=== PATIENT | female | born 2000 | race Caucasian/White ===

== ENCOUNTER 2019-11-12 06:34 | Emergency (ER) | payer OTHER ==
[~2019-11-12] VITALS: Ht 162.6 cm; Wt 65.9 kg
[2019-11-12 06:37] VITALS: BP 129/77
--- NOTE | 2019-11-12 06:50 | NUR ---
DR. LEON IN WITH PATIENT
[2019-11-12] MEDS ORDERED: IBUP-1984 PO (07:00)
== END 2019-11-12 07:10 | disposition home or self-care (01) ==
LOC: ER 06:35
DX: S66.811A Strain of other specified muscles, fascia and tendons at wrist and hand level, right hand, initial encounter (principal); X58.XXXA Exposure to other specified factors, initial encounter; Z79.899 Other long term (current) drug therapy; Y93.89 Activity, other specified; Y92.238 Other place in hospital as the place of occurrence of the external cause; Y99.0 Civilian activity done for income or pay
CPT/HCPCS: 99282

== ENCOUNTER 2020-01-31 11:03 | Emergency (ER) | payer BC, OTHER ==
[~2020-01-31] VITALS: Ht 160 cm; Wt 68.2 kg
[2020-01-31] MEDS ORDERED: ondansetron/PF 4mg/2ml inj IV ONE (11:50)
[2020-01-31] MEDS ORDERED: normal saline 1000ML IV soln IVB ONE (11:50)
[2020-01-31 13:11] LABS: BASOPHILS % (AUTO) 0.1 % (0-1); EOSINOPHILS % (AUTO) 0.3 % (0-6); HEMATOCRIT 37.6 % (35.0-45.0); HEMOGLOBIN 12.4 g/dl (12.0-16.0); LYMPHOCYTES # (AUTO) 1.2 X10'3 (1.1-4.8); LYMPHOCYTES % (AUTO) 6.2 % (21-51); MEAN CORPUSCULAR HEMOGLOBIN 27.4 PG (27.0-31.0); MEAN CORPUSCULAR HGB CONC 33.1 g/dL (33.0-36.5); MEAN CORPUSCULAR VOLUME 82.9 FL (78-98); MEAN PLATELET VOLUME 8.7 FL (7.4-10.4); MONOCYTES % (AUTO) 10.5 % (2-12); NEUTROPHILS # (AUTO) 15.5 X10'3 (1.8-7.7); NEUTROPHILS % (AUTO) 82.9 % (42-75); PLATELET COUNT 258 X10'3 (140-440); RED BLOOD COUNT 4.54 X10'6 (4.20-5.60); RED CELL DISTRIBUTION WIDTH 14.3 % (11.5-14.5); WHITE BLOOD COUNT 18.6 X10'3 (4.5-11.0)
[2020-01-31 13:24] LABS: ALANINE AMINOTRANSFERASE 20 U/L (12-78); ALBUMIN 3.9 G/DL (3.4-5.0); ALKALINE PHOSPHATASE 78 IU/L (20-180); ANION GAP 11 (8-16); ASPARTATE AMINO TRANSFERASE 14 U/L (10-37); BILIRUBIN,TOTAL 0.5 MG/DL (0.1-1.0); BLOOD UREA NITROGEN 11 MG/DL (7-18); BUN/CREATININE RATIO 10.7 (6.6-38.0); CALCIUM 9.1 MG/DL (8.5-10.1); CHLORIDE 101 MMOL/L (99-107); CREATININE 1.03 MG/DL (0.40-0.90); GLUCOSE 120 MG/DL (70-104); POTASSIUM 3.5 MMOL/L (3.5-5.1); SODIUM 137 MMOL/L (135-145); TOTAL PROTEIN 7.7 G/DL (6.4-8.2); eGFR 68 ML/MIN
[2020-01-31 13:39] LABS: CLARITY,URINE SLIGHTLY CLOUDY (Clear); COLOR,URINE YELLOW (Yellow); GLUCOSE, URINE NEGATIVE (Neg); KETONES,URINE NEGATIVE (Neg); LEUKOCYTE ESTERASE ,URINE NEGATIVE (Neg); NITRITES, URINE NEGATIVE (Neg); OCCULT BLOOD,URINE TRACE-INTACT (Neg); PROTEIN,URINE 30 mg/dl (Neg); UROBILINOGEN,URINE 0.2 E.U/dL (0.2-1.0)
[2020-01-31 13:51] LABS: UA COLLECTION TYPE CLN CATCH MIDSTREAM
[2020-01-31 13:53] LABS: URINE HCG NEGATIVE (NEG)
[2020-01-31 13:55] LABS: RBC,URINE 0-2 /HPF (0-2)
[2020-01-31 13:57] LABS: BACTERIA,URINE FEW /HPF (Neg); MUCUS STRANDS MODERATE /LPF (Neg); SQUAMOUS EPITHELIAL CELL,UR MODERATE /LPF (FEW)
[2020-01-31 14:43] VITALS: BP 97/59
[2020-01-31] MEDS ORDERED: METR250T PO (14:58)
[2020-01-31] MEDS ORDERED: CIPR-259 PO (14:58)
[2020-01-31] MEDS ORDERED: ONDA4TAB6 PO (14:58)
== END 2020-01-31 15:09 | disposition home or self-care (01) ==
LOC: ER 11:04 → EEVIPCON 11:04 → ER 15:09
DX: N72 Inflammatory disease of cervix uteri (principal); N73.0 Acute parametritis and pelvic cellulitis; R11.2 Nausea with vomiting, unspecified; R19.7 Diarrhea, unspecified; Z79.899 Other long term (current) drug therapy
CPT/HCPCS: 36415; 74176; 80053; 81001; 81025; 85025; 87088; 96361; 96374; 99284; J2405; J7030

== ENCOUNTER 2020-04-23 04:32 | Emergency (ER) | payer OTHER ==
[~2020-04-23] VITALS: Ht 160 cm; Wt 71.4 kg
[~2020-04-23 04:32] MED LIST: ONDA4TAB6 PO
[2020-04-23 04:35] VITALS: BP 149/93
[2020-04-23 04:50] LABS: CLARITY,URINE CLEAR (Clear); COLOR,URINE YELLOW (Yellow); GLUCOSE, URINE NEGATIVE (Neg); KETONES,URINE NEGATIVE (Neg); LEUKOCYTE ESTERASE ,URINE MODERATE (Neg); NITRITES, URINE NEGATIVE (Neg); OCCULT BLOOD,URINE NEGATIVE (Neg); PROTEIN,URINE NEGATIVE (Neg); UROBILINOGEN,URINE 0.2 E.U/dL (0.2-1.0)
[2020-04-23 04:51] LABS: URINE HCG NEGATIVE (NEG)
[2020-04-23 05:25] LABS: UA COLLECTION TYPE CLN CATCH MIDSTREAM
[2020-04-23 05:29] LABS: BACTERIA,URINE FEW /HPF (Neg); MUCUS STRANDS NONE SEEN /LPF (Neg); RBC,URINE 0-2 /HPF (0-2); SQUAMOUS EPITHELIAL CELL,UR FEW /LPF (FEW); WBC CLUMPS,URINE MODERATE /HPF (NEGATIVE); WBC,URINE 20-30 /HPF (0-4)
[2020-04-23] MEDS ORDERED: CEFD300C3 PO (05:41)
== END 2020-04-23 05:52 | disposition home or self-care (01) ==
LOC: ER 04:33
DX: N10 Acute pyelonephritis (principal); Z79.2 Long term (current) use of antibiotics; Z79.899 Other long term (current) drug therapy
CPT/HCPCS: 36415; 81001; 81025; 87077; 87088; 87186; 87210; 87491; 99284

== ENCOUNTER 2020-07-23 14:39 | Emergency (ER) | payer BC, OTHER ==
[~2020-07-23] VITALS: Ht 170.2 cm; Wt 63.6 kg
== END 2020-07-23 15:00 | disposition home or self-care (01) ==
LOC: ER 14:40
DX: J02.9 Acute pharyngitis, unspecified (principal); R50.9 Fever, unspecified; R53.1 Weakness; Z00.01 Encounter for general adult medical examination with abnormal findings; Z79.899 Other long term (current) drug therapy
CPT/HCPCS: 99281

== ENCOUNTER 2024-02-04 20:24 | Emergency (ER) | payer BC, OTHER ==
[~2024-02-04] VITALS: Ht 162.6 cm; Wt 84.1 kg
[2024-02-04] MEDS: diazepam 5mg tablet PO ONE (21:54)
[2024-02-04 22:42] VITALS: BP 108/62; PULSE 105; RESP 16; TEMP 98.6; O2SAT 98
== END 2024-02-04 22:38 | disposition home or self-care (01) ==
LOC: ER 20:24
DX: F41.9 Anxiety disorder, unspecified (principal); Z79.899 Other long term (current) drug therapy
CPT/HCPCS: 93005; 99283

== ENCOUNTER 2024-07-16 13:03 | Emergency (ER) | payer BC ==
[~2024-07-16] VITALS: Ht 162.6 cm; Wt 76.8 kg
[2024-07-16 13:51] LABS: BILIRUBIN,URINE NEGATIVE (Neg); CLARITY,URINE SLIGHTLY CLOUDY (Clear); COLOR,URINE YELLOW (Yellow); GLUCOSE, URINE NEGATIVE (Neg); KETONES,URINE NEGATIVE (Neg); LEUKOCYTE ESTERASE ,URINE NEGATIVE (Neg); NITRITES, URINE NEGATIVE (Neg); OCCULT BLOOD,URINE NEGATIVE (Neg); PROTEIN,URINE NEGATIVE (Neg); UROBILINOGEN,URINE 0.2 E.U/dL (0.2-1.0)
[2024-07-16 13:52] LABS: UA COLLECTION TYPE CLN CATCH MIDSTREAM
[2024-07-16 14:02] LABS: BACTERIA,URINE 2+ /HPF (Neg); MUCUS STRANDS FEW /LPF (Neg); RBC,URINE NONE SEEN /HPF (0-2); SQUAMOUS EPITHELIAL CELL,UR FEW /LPF (FEW); WBC,URINE 0-4 /HPF (0-4)
[2024-07-16 16:33] VITALS: BP 130/89; PULSE 93; RESP 16; O2SAT 99
[2024-07-16] MEDS ORDERED: DICY10CA88 PO (18:26)
[2024-07-16 18:32] VITALS: TEMP 98.3
== END 2024-07-16 18:34 | disposition home or self-care (01) ==
LOC: ER 13:03
DX: R10.12 Left upper quadrant pain (principal); Z79.899 Other long term (current) drug therapy
CPT/HCPCS: 74022; 81001; 99284

== ENCOUNTER 2024-11-19 10:34 | Outpatient (CLI) | payer BC | END 2024-11-19 23:59 | disposition home or self-care (01) | LOC: RAD 10:34 | PROVIDERS: ATTEND Nurse Practitioner Primary Care | DX: R13.14 Dysphagia, pharyngoesophageal phase (principal); R05.9 Cough, unspecified; Z79.899 Other long term (current) drug therapy | CPT/HCPCS: 74230 ==

== ENCOUNTER 2025-06-11 17:23 | Emergency (ER) | payer BC ==
[~2025-06-11] VITALS: Ht 162.6 cm; Wt 80.7 kg
--- NOTE | 2025-06-11 17:37 | Physician Documentation ---
History of Present Illness ~ Stated Complaint: KIDNEY INFECTION Time Seen by MD: 19:36 Primary Medical Doctor: [facility] HPI MSE: 24-year-old female who presents due to concerns for kidney infection. She reports that she has had numerous urinary tract infections, but she is now having nausea, tachycardia, dizziness and feeling overall unwell. She reports low back pain is also occurring at this time. HPI: The patient tells me that she has been having some back pain/flank pain over the past several weeks and months. Today it acutely worsened and she also reports feeling dizzy and fatigued. No fevers or chills. No vomiting. No diarrhea. No dysuria. She does report being under lot of stress recently. She states that yesterday she had a severely stressful incident. No other acute concerns. Medication Reconciliation Allergies: Coded Allergies: No Known Allergies (Unverified , 06/11/25) Scheduled Ondansetron Hcl (Zofran), 1 TAB PO Q6H Past Medical History Past Medical History: *RENAL/* Past Surgical History: noncontributory Alcohol Use: Occasionally Drug Use: none Lives In: Home Occupation: employed Review of Systems ROS As stated above in the HPI, otherwise all systems are reviewed and negative. Constitutional: Denies: fever Gastrointestinal: Reports: abdominal pain; Denies: vomiting, diarrhea Musculoskeletal: Reports: back pain Physical Exam Physical Exam General: This is an anxious appearing young woman, partner at bedside HEENT: Atraumatic, oropharynx appears dry Heart: Mild tachycardic, appears regular Lungs: normal work of breathing, normal oxygen saturation on room air Abdomen: Soft, nondistended, mild discomfort on palpation in the lower abdomen, without rebound or guarding Back: Tender to palpation over the left lower back and flank, also has mild CVA tenderness to percussion Neuro: Alert and oriented Psychiatric: Appears extremely anxious, but is cooperative Progress Results/Orders Results/Orders Medications Received in ER Medications (Trade) Dose Ordered Sig/Marcus Route PRN Reason Start Time Stop Time Status Last Admin Dose Admin Sodium Chloride 1,000 ml @ 1,000 mls/hr ONCE ONCE IV 06/11/25 17:40 06/11/25 18:39 DC 06/11/25 18:46 1,000 MLS/HR (Compazine inj) 5 mg ONCE PRN IV nausea/vomiting 06/11/25 17:40 06/11/25 20:10 DC 06/11/25 18:50 5 MG (Benadryl inj.) 12.5 mg ONCE ONCE IV 06/11/25 17:40 06/11/25 17:41 DC 06/11/25 18:46 12.5 MG (Toradol injection) 15 mg ONCE ONCE IV 06/11/25 17:40 06/11/25 17:41 DC 06/11/25 18:47 15 MG Vital Signs 06/11/25 06/11/25 06/11/25 06/11/25 17:36 18:47 18:57 18:57 Temp 97.9 Pulse 150 89 Resp 28 18 18 18 B/P (MAP) 147/83 94/53 (67) Pulse Ox 100 99 O2 Flow Rate 0 06/11/25 06/11/25 19:05 20:08 Temp 98.6 Pulse 90 Resp 18 18 B/P (MAP) 101/53 Pulse Ox 99 Laboratory Tests Test 06/11/25 17:56 06/11/25 18:30 White Blood Count 8.1 Red Blood Count 4.81 Hemoglobin 15.0 Hematocrit 42.8 Mean Corpuscular Volume 88.8 Mean Corpuscular Hemoglobin 31.1 H Mean Corpuscular Hemoglobin Concent 35.0 Red Cell Distribution Width 12.9 Platelet Count 294 Mean Platelet Volume 8.2 Neutrophils (%) (Auto) 64.9 Lymphocytes (%) (Auto) 25.5 Monocytes (%) (Auto) 5.9 Eosinophils (%) (Auto) 3.2 Basophils (%) (Auto) 0.5 Neutrophils # (Auto) 5.2 Lymphocytes # (Auto) 2.1 Monocytes # (Auto) 0.5 Eosinophils # (Auto) 0.3 Basophils # (Auto) 0.0 CBC Comment Sodium Level 136 Potassium Level 3.2 L Chloride Level 102 Carbon Dioxide Level 24.4 Anion Gap 10 Blood Urea Nitrogen 10 Creatinine 0.69 Estimated GFR/1.73 m2 > 90 BUN/Creatinine Ratio 14.5 Glucose Level 131 H Lactic Acid Level 1.3 Calcium Level 9.1 Magnesium Level 2.0 C-Reactive Protein 0.09 Albumin 4.5 Procalcitonin < 0.05 Chemistry Comments Urine Specimen Description Non-specified Urine Color Yellow Urine Clarity Clear Urine pH 6.0 Urine Specific Crawford 1.025 Urine Protein Negative Urine Glucose (UA) Negative Urine Ketones 40 H Urine Occult Blood Negative Urine Nitrite Negative Urine Bilirubin Negative Urine Urobilinogen 0.2 Urine Leukocyte Esterase Negative Urine Culture Indicated Not ind Volume Urine Centrifuged 10 ml Urine HCG, Qualitative Negative Urine Comment Microbiology Date/Time Source Procedure Growth Status 06/11/25 18:03 Blood Arm Left Blood Culture - Preliminary NEGATIVE (LESS THAN 24 HOURS) Resulted Medical Decision Making Additional information obtaine: old records Findings Previous visit to the ER on 07/16/2024 for abdominal pain, thought to be due to IBS. Urinary Diff Dx:Considerations: Include: Appendicitis, Bowel obstruction, Ectopic , UTI, Other Genital Diff Dx:Considerations: Include: Other Additional Comment Most Likely Diagnoses Urinary tract infection / acute pyelonephritis: The combination of urinary symptoms, tachycardia, nausea, low back pain, and diaphoresis is highly suggestive of a UTI, possibly ascending to pyelonephritis. Pyelonephritis can pr esent with systemic symptoms such as tachycardia and diaphoresis, even in the absence of fever, and should be suspected in patients with flank or back pain and urinary complaints.[1] Anxiety or panic attack: Anxiety can cause tachycardia, diaphoresis, nausea, and even pain. The presence of anxiety and tachycardia together is consistent with an anxiety disorder or panic attack, which commonly presents with physical symptoms such as palpitations and diaphoresis.[2] Supraventricular tachycardia (SVT): SVT can present with a rapid heart rate (often >150 bpm), anxiety, diaphoresis, and sometimes nausea. SVT should be considered, especially if the tachycardia is abrupt in onset and not explained by infection or anxiety alone.[3] Nephrolithiasis (renal colic): Renal stones can cause severe low back pain, nausea, and sometimes urinary symptoms. Diaphoresis and tachycardia may occur due to pain and sympathetic activation.[4] Dehydration / hypovolemia: Tachycardia, nausea, and diaphoresis may result from hypovolemia, especially if there is vomiting or poor oral intake associated with pain or infection.[5] Stimulant or medication-induced tachycardia: Stimulant use (e.g., amphetamines, cocaine) or certain medications can cause a hyperadrenergic state with tachycardia, anxiety, diaphoresis, and nausea.[6] Hyperthyroidism / thyrotoxicosis: Thyrotoxicosis can present with tachycardia, anxiety, diaphoresis, and sometimes nausea or abdominal pain.[7] Most Important Not to Miss Diagnoses Sepsis (urosepsis): Urosepsis should be considered in any patient with UTI symptoms and systemic signs such as tachycardia and diaphoresis. Early recognition and treatment are critical; look for hypotension, altered mental status, or evidence of organ dysfunction.[8] Pulmonary embolism: PE can present with tachycardia, anxiety, diaphoresis, and sometimes back pain or nausea. It should be considered if there are risk factors or unexplained tachycardia. Assessment The patient presents with flank pain and other associated symptoms. Her workup is unrevealing, no evidence of an acute dangerous process on her laboratory testing or urinalysis. Per her history and exam, I suspect that much of her symptoms are related to stress and anxiety, especially given that she had a very stressful event yesterday that seems to have triggered this episode. I did offer to perform a pelvic exam to further evaluate for pelvic cause of her pain, as well as I discuss the possibility of a CT scan to evaluate for kidney stone or other intra-abdominal process. After shared decision-making conversation, she declined any further workup. She will follow up with the primary care doctor next week. She did agree that she would returns to the emergency room if she has worsening symptoms. No evidence of an emergent process at this time, but given that she did not want further workup, and exact diagnosis is unclear. I believe that stress is playing at least a part in her presentation. Departure Time of Disposition: 19:51 Disposition: 01 HOME / SELF CARE / HOMELESS Impression: Primary Impression: Flank pain Additional Impression: Stress reaction Condition: Improved Discharge Instructions: Flank Pain, Adult, Managing Stress, Adult Referrals: NO PRIMARY CARE PROVIDER (PCP) Education Educated: Patient, Family Educated regarding: diagnosis, need for follow up Signature Scribe Signature: x Attestation: VALDO Segovia NP Jun 11, 2025 17:37 LAURO BILLINGS MD Jun 11, 2025 19:52
--- NOTE | 2025-06-11 17:38 | ELECTROCARDIOGRAPH REPORT ---
[facility] Test Date: 2025-06-11 Test Time: 17:35:20 Pat Name: JALEESA SAM Department: EMERGENCY ROOM Room: Gender: F [employer] T[employer]: PM : 2000 Requested By: ALIX STAPLETON Order Number: [id number] Reading MD: Dr. Giovanni Burks Measurements Intervals [place] Rate: 117 P: 75 [place]: 171 QRS: 73 QRSD: 80 T: -20 QT: 313 QTc: 437 Interpretive Statements Sinus tachycardia Right atrial enlargement Borderline T abnormalities, diffuse leads Electronically Signed On 06-14-2025 20:44:[address] Giovanni Burks Please click the below link to view image of tracing.
[2025-06-11 18:26] LABS: MEAN PLATELET VOLUME 8.2 FL (7.4-10.4); RED CELL DISTRIBUTION WIDTH 12.9 % (11.5-14.5)
[2025-06-11 18:33] LABS: CREATININE 0.69 MG/DL (0.40-0.90); TOTAL CARBON DIOXIDE 24.4 MMOL/L (24-32); eCRCL 108 ML/MIN; eGFR > 90 ML/MIN
[2025-06-11] MEDS: normal saline 1000ml 1,000 ML IV ONE (18:46)
[2025-06-11] MEDS: ketorolac trometh 15mg/ml vial 15 MG/ML ML IV ONE (18:47)
[2025-06-11 19:04] LABS: LEUKOCYTE ESTERASE ,URINE NEGATIVE (Neg); NITRITES, URINE NEGATIVE (Neg); OCCULT BLOOD,URINE NEGATIVE (Neg)
[2025-06-11 19:07] LABS: URINE HCG NEGATIVE (NEG)
[2025-06-11 19:16] LABS: UA COLLECTION TYPE NON-SPECIFIED
[2025-06-11 20:08] VITALS: BP 101/53; PULSE 90; RESP 18; TEMP 98.6; O2SAT 99
== END 2025-06-11 20:10 | disposition home or self-care (01) ==
LOC: ER 17:24
DX: R10.30 Lower abdominal pain, unspecified (principal); R00.0 Tachycardia, unspecified; F43.9 Reaction to severe stress, unspecified; Z79.899 Other long term (current) drug therapy; Z72.89 Other problems related to lifestyle; Z87.440 Personal history of urinary (tract) infections
CPT/HCPCS: 36415; 80048; 81003; 81025; 83605; 83735; 84145; 85025; 86140; 87040; 93005; 96361; 96374; 96375; 99284; J0780; J1200; J1885; J7030